=== PATIENT | male | born 1940 | race Caucasian/White ===

== ENCOUNTER 2017-12-13 02:14 | Emergency (ER) | payer MEDICARE, OTHER ==
[~2017-12-13] VITALS: Ht 180.3 cm; Wt 127.9 kg
[~2017-12-13 02:14] MED LIST: ASPIRIN 81 MG E81 MG PO; COUMADIN5 MG PO; COUMADIN7.5 MG PO; HYTRIN10 MG PO; ZOCOR20 MG PO
[2017-12-13 02:17] VITALS: Ht 180.3 cm; Wt 127.9 kg
[2017-12-13] MEDS ORDERED: COZAAR25 MG PO (02:19)
[2017-12-13] MEDS ORDERED: COUMADIN5 MG PO (02:19)
[2017-12-13 02:50] LABS: BASOPHILS 0.6 % (0-2); EOSINOPHILS 2.2 % (0-7); HEMATOCRIT 41.5 % (42.0-54.0); HEMOGLOBIN 13.9 g/dL (13.5-17.5); IMMATURE GRANULOCYTES 0.3 % (0-5); LYMPHOCYTES 31.8 % (15-50); MCH 28.8 pg (26.0-34.0); MCHC 33.5 g/dL (31.0-37.0); MCV 86.1 fL (80.0-100.0); MEAN PLATELET VOLUME 9.5 fL (7.4-10.4); MONOCYTES 6.3 % (2-11); NEUTROPHILS 58.8 % (40-80); PLATELET COUNT 141 10x3/uL (130-400); RBC 4.82 10x6/uL (4.20-6.10); RDW 14.2 % (11.5-14.5); WBC 6.2 10x3/uL (4.8-10.8)
[2017-12-13 03:03] LABS: ALBUMIN 2.9 g/dL (3.4-5.0); ANION GAP 12.8 mmol/L (8-16); BILIRUBIN - TOTAL 0.28 mg/dL (0.2-1.3); CALCIUM 8.7 mg/dL (8.5-10.1); CARBON DIOXIDE 25.2 mmol/L (21.0-32.0); CREATININE - SERUM 1.1 mg/dL (0.6-1.3); PROTEIN - SERUM 6.1 g/dL (6.4-8.2)
[2017-12-13 03:10] LABS: APTT 32.1 SECONDS (22.8-39.4); INR 2.62 (0.85-1.17); PROTIME 27.3 SECONDS (11.6-15.0)
[2017-12-13 03:35] LABS: APPEARANCE CLEAR (CLEAR); COLOR YELLOW (YELLOW); GLUCOSE NEGATIVE (NEGATIVE); KETONE NEGATIVE (NEGATIVE); NITRITE NEGATIVE (NEGATIVE); PROTEIN NEGATIVE (NEGATIVE); UROBILINOGEN NORMAL (NORMAL)
[2017-12-13 03:36] LABS: BILIRUBIN NEGATIVE (NEGATIVE)
[2017-12-13 03:38] LABS: BACTERIA FEW /hpf (NONE SEEN); EPITHELIAL CELLS 0-5 /hpf (0-5); RED CELLS - URINE 0-5 /hpf (0-5); WHITE CELLS - URINE 0-5 /hpf (0-5)
[2017-12-13 06:12] LABS: HEMATOCRIT 39.5 % (42.0-54.0); HEMOGLOBIN 12.9 g/dL (13.5-17.5)
[2017-12-13 09:58] VITALS: BP 141/80
== END 2017-12-13 10:00 | disposition other institution (70) ==
LOC: D.ER 02:14
PROVIDERS: Family Medicine
DX: K92.2 Gastrointestinal hemorrhage, unspecified (principal); Z79.01 Long term (current) use of anticoagulants